=== PATIENT | female | born 1990 | race Caucasian/White ===

== ENCOUNTER 2020-06-30 09:16 | Inpatient (IN) | payer BC ==
[2020-06-30] MEDS ORDERED: Ondansetron 4 MG/2 ML SDV IVPUSH PRN (09:29)
[2020-06-30] MEDS ORDERED: Nalbuphine 10 MG/1 ML Vial IVPUSH PRN (09:29)
[2020-06-30] MEDS ORDERED: Sodium Chloride 0.9% 10 ML Syringe FLUSH PRN (09:29)
[2020-06-30] MEDS ORDERED: Oxytocin/Lactated Ringers 10 UNIT/1,000 ML BAG IV SCH ×2 (09:30→14:00)
[2020-06-30] MEDS: Lactated Ringers 1,000 ML IV SCH ×4 (11:20→14:45)
--- NOTE | 2020-06-30 11:36 | PCM.LDHP ---
L&D History of Present Illness - General Date of Service: 06/30/20 Admit Problem/Dx: Patient Status Order with Admit Dx/Problem 06/30/20 09:29 Patient Status [ADT] Routine Admission Diagnosis/Problem Admission Diagnosis/Problem 06/30/20 11:27 Vera is a 30-year-old 2 para 1-0-0-1 white female who is admitted on the a.m. of 06/30/2020 at 40-1/7 weeks gestational age is within NARESH of 06/11 in active labor with SROM. Source of Information: Patient History Limitations: Reports: No Limitations - History of Present Illness Introduction:: Vera is a 30-year-old 2 para 1-0-0-1 white female who is admitted on the a.m. of 06/30/2020 at 40-1/7 weeks gestational age is within NARESH of in active labor with SROM. She reportedly at 0730 hrs. on 06/30/2020 had a slight leakage of fluid. She called labor and delivery and was told to come in and upon arrival in [place] from [place] had a big gush of fluid and continued moderate amount of fluid loss consistent with SROM. She is avinash approximately every 3 to 5 minutes mild to moderate in nature. Baby has been active. 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 NARESH of 06/29/2020 as determined by a certain last menstrual period which started on 09/23/2019 and is supported by 2 ultrasounds done on 12/13/2019 and 02/11/2020. Patient had menarche at approximately age 12. Cycles q. 28 to 30 days. Last menstrual period 09/23/2019 was a normal cycle and was definite. She is not using any control at the time of conception. She delivered her last baby on 05/26/2018 at 40 and 4 7 weeks gestational age6 pound 4 ounce male via . She had an epidural without delivery. She delivered at [facility] in [place]. Child's name is Hans Bush. She has had no abnormal Pap smears or STIs per her reported history. course. Patient was first seen for this at 11-4/7 weeks gestational age on 12/13/2019. She was seen on a regular basis. Her weight gain has been from 133 pounds to 154 pounds 21 pound increase. Her vital signs of been stable throughout the course and her fundal height growth has been within normal limits at just below that expected for each gestational age e valuation. Patient is group B strep negative. She had an induction scheduled for 07/05/2020. She declined genetic testing. [place] depression screen score on 02/14/2020 was 0/30. Flu vaccine was administered on 05/24/2020. She had a normal 1 hour GTT. She plans to breast-feed. Tdap was given in [place] on 05/24/2020. labs: Blood is B+ with a negative antibody screen. Hemoglobin at first visit was 14.5 g/dL and platelets were 308,000. She is rubella immune. RPR is nonreactive. Urine culture was negative. Hepatitis B surface antigen and HIV assays were both negative as were her chlamydia and gonorrhea tests. Second trimester labs showed a hemoglobin of 12.4 g/dL and a platelet count of 269,000. Her 1 hour GTT was 76. RPR was nonreactive on 03/29/2020. Group B strep screen was negative. Allergies: None Medications: 1. vitamins 1 daily 2. Probiotic caps 1 daily. Past medical history: 1. x1 05/26/2018. Past surgical history: Unremarkable Family history mother is alive and well Father with hypertension. 1 brother alive and well. Maternal grandmother is alive and well. Maternal grandfather secondary to lung and prostate cancer. Paternal grandmother secondary to lung cancerwas a smoker. Paternal grandfather alive with heart disease and coronary artery bypass surgery. There are no anesthesia, bleeding, blood clots or problems noted in the family. Brother with thyroid nodule that was surgically removed. He has hypothyroid on replacement. History: Patient is : Lives in [place], [place]. She does not use any significant alcohol, drugs or tobacco. 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 's name is Eleazar. Review of systems: In general patient has no complaints. The baby has been active. SROM is reported. Clear amniotic fluid resulting. Skin: Negative Lungs: No infectious symptoms or shortness of breath Cardiovascular: No chest pain or exercise intolerance Breasts: No lumps, changes in size, pain, dimpling, discharge or axillary or supraclavicular concerns. GI: Negative : changes. Musculoskeletal: Negative Neurological: Negative Physical exam: In general the patient is well-developed, well-nourished, pleasant female of stated age in no acute distress. On last evaluation clinic her blood pressure is 112/70. Weight was 154.12 pounds with pregravid weight of 133 pounds. Height is 5 feet 1 and body mass index pre was 24.4. heart rate was 146. Skin is warm dry without lesions. HEENT, neck and back within normal limits. Lungs are clear with good breath sounds in all lung mckeon. Cardiovascular exam shows regular and rhythm without murmurs. Breast exam deferred have been done at first visit and found to be normal. Abdomen is gravid with last fundal height in clinic at 35 5 cm in 2019.. Genital per digital exam was 3 cm, 90% effaced, -3 station, anterior, soft, clear amniotic fluid noted. Extremities and neurological exam are grossly within normal limits. 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3 (34.1-44.9) % MCV 88.2 (79.4-94.8) fl MCH 29.3 (25.6-32.2) pg MCHC 33.3 (32.2-35.5) g/dl RDW Std Deviation 43.4 (36.4-46.3) fL Plt Count 284 (182-369) K/mm3 MPV 8.6 L (9.4-12.3) fl Neut % (Auto) 81.6 H (34.0-71.1) % Lymph % (Auto) 12.4 L (19.3-51.7) % Nobles % (Auto) 5.0 (4.7-12.5) % Eos % (Auto) 0.5 L (0.7-5.8) Baso % (Auto) 0.1 (0.1-1.2) % Neut # (Auto) 10.83 H (1.56-6.13) K/mm3 Lymph # (Auto) 1.65 (1.18-3.74) K/mm3 Nobles # (Auto) 0.66 H (0.24-0.36) K/mm3 Eos # (Auto) 0.06 (0.04-0.36) K/mm3 Baso # (Auto) 0.01 (0.01-0.08) K/mm3 Manual Slide Review Normal smear Result Diagrams: 06/30/20 10:10 Problem List Initiated/Reviewed/Updated: Yes Orders Last 24hrs: Active Orders 24 hr Category Date Time Status Patient Status [ADT] Routine ADT 06/30/20 09:29 Active Activity as Tolerated [RC] PFP Care 06/30/20 09:29 Active Communication Order [RC] ASDIRECTED Care 06/30/20 09:29 Active Heart Tones [RC] ASDIRECTED Care 06/30/20 09:29 Active Notify Provider [RC] PFP Care 06/30/20 09:29 Active Notify Provider [RC] PRN Care 06/30/20 09:29 Active Peripheral IV Care [RC] . DIRECTED Care 06/30/20 09:29 Active Pump Management, Intrathecal [RC] ASDIRECTED Care 06/30/20 09:30 Active Urinary Catheter Assessment [RC] ASDIRECTED Care 06/30/20 09:29 Active Vital Signs [RC] PER UNIT ROUTINE Care 06/30/20 09:29 Active Regular Diet [DIET] Diet 06/30/20 Breakfast Active CORONAVIRUS COVID-19 LAMINE [MOLEC] Stat Lab 06/30/20 09:45 Received RAPID PLASMA REAGIN,RPR [CHEM] Routine Lab 06/30/20 10:10 Received Lactated Ringers [Ringers, Lactated] 1,000 ml Med 06/30/20 09:30 Active IV ASDIRECTED Nalbuphine [Nubain] Med 06/30/20 09:29 Active 10 mg IVPUSH Q2H PRN Ondansetron [Zofran] Med 06/30/20 09:29 Active 4 mg IVPUSH Q4H PRN Oxytocin/Lactated Ringers [Pitocin in LR 10 Units/1,000 Med 06/30/20 09:30 Active ML] 10 unit in 1,000 ml IV .CONTINUOUS Sodium Chloride 0.9% [Saline Flush] Med 06/30/20 09:29 Active 10 ml FLUSH ASDIRECTED PRN Electronic Heart Tones Ext w TOCO [WOMSER] Oth 06/30/20 09:29 Ordered Routine Electronic Heart Tones Internal [WOMSER] Per Unit Oth 06/30/20 09:29 Ordered Routine Peripheral IV Insertion Adult [OM.PC] Routine Oth 06/30/20 09:29 Ordered Resuscitation Status Routine Resus Stat 06/30/20 09:29 Ordered Medication Orders Oxytocin/Lactated Ringer's (Pitocin In Lr 10 Units/1,000 Ml) 10 unit in 1,000 mls @ 500 mls/hr IV .CONTINUOUS LISA Lactated Ringer's (Ringers, Lactated) 1,000 mls @ 100 mls/hr IV ASDIRECTED LISA Last Admin: 06/30/20 11:20 Dose: 999 mls/hr Documented by: MICHAEL Nalbuphine HCl (Nubain) 10 mg IVPUSH Q2H PRN PRN Reason: Pain Ondansetron HCl (Zofran) 4 mg IVPUSH Q4H PRN PRN Reason: Nausea/Vomiting Sodium Chloride (Saline Flush) 10 ml FLUSH ASDIRECTED PRN PRN Reason: Keep Vein Open Assessment/Plan Comment:: 1. Vera is a 30-year-old 2 para 1-0-0-1 white female who is admitted on the a.m. of 06/30/2020 at 40-1/7 weeks gestational age is within NARESH of in active labor with SROM resultant clear amniotic fluid. heart tones reassuring 2. Group B strep negative 3. Patient desires epidural in labor 4. She plans to breast-feed 5. Patient declined genetic testing. 6. Flu vaccination given on 05/24/2020, patient is rubella immune. Tdap was given on 04/2020. Plan: 1. Anticipate . 2. Pitocin augmentation as indicated by labor pattern 3. Epidural as needed for patient desire 4. Covid19, RPR and CBC upon admission per protocol 5. Support breast-feeding decision 6. Routine labor care.
[2020-06-30] MEDS ORDERED: ePHEDrine 50 MG/ML SDV IVPUSH PRN (12:06)
[2020-06-30] MEDS ORDERED: diphenhydrAMINE 50 MG/ML SDV IVPUSH PRN (12:06)
[2020-06-30] MEDS ORDERED: fentaNYL 100 MCG/2 ML SDV EPIDUR PRN (12:06)
[2020-06-30] MEDS ORDERED: Bupivacaine/fentaNYL/NS 100 ML Bag EPIDUR PRN (12:06)
[2020-06-30] MEDS ORDERED: Phenylephrine/Normal Saline 100 MCG/ML 10 ML Syringe IVPUSH PRN (13:26)
--- NOTE | 2020-06-30 13:38 | PCM.PREANE ---
Preanesthetic Assessment - Procedure Proposed Procedure: Labor Epidural - Anesthesia/Transfusion/Family Hx Anesthesia History: Prior Anesthesia Without Reaction Family History of Anesthesia Reaction: No Transfusion History: No Prior Transfusion(s) - Review of Systems General: No Symptoms Pulmonary: No Symptoms Cardiovascular: No Symptoms Gastrointestinal: No Symptoms Neurological: No Symptoms Other: Reports: None, Anxiety (Related to epdiural placement) - Physical Assessment Vital Signs: Last Vital Signs Temp 37.7 C 06/30/20 12:18 Pulse 84 06/30/20 09:29 Resp 15 06/30/20 09:29 BP 133/85 06/30/20 09:29 Pulse Ox Height: 1.55 m Weight: 71.94 kg ASA Class: 2 Mental Status: Alert & Oriented x3 Airway Class: Mallampati = 1 Dentition: Reports: Normal Dentition Thyro-Mental Finger Breadths: 3 Mouth Opening Finger Breadths: 3 ROM/Head Extension: Full Lungs: Clear to Auscultation, Normal Respiratory Effort Cardiovascular: Tachycardia (120-130s ) - Lab Values: Laboratory Last Values WBC 13.26 K/mm3 (3.98-10.04) H 06/30/20 10:10 RBC 4.57 M/mm3 (3.98-5.22) 06/30/20 10:10 Hgb 13.4 gm/dl (11.2-15.7) 06/30/20 10:10 Hct 40.3 % (34.1-44.9) 06/30/20 10:10 MCV 88.2 fl (79.4-94.8) 06/30/20 10:10 MCH 29.3 pg (25.6-32.2) 06/30/20 10:10 MCHC 33.3 g/dl (32.2-35.5) 06/30/20 10:10 RDW Std Deviation 43.4 fL (36.4-46.3) 06/30/20 10:10 Plt Count 284 K/mm3 (182-369) 06/30/20 10:10 MPV 8.6 fl (9.4-12.3) L 06/30/20 10:10 Neut % (Auto) 81.6 % (34.0-71.1) H 06/30/20 10:10 Lymph % (Auto) 12.4 % (19.3-51.7) L 06/30/20 10:10 Emanuel % (Auto) 5.0 % (4.7-12.5) 06/30/20 10:10 Eos % (Auto) 0.5 (0.7-5.8) L 06/30/20 10:10 Baso % (Auto) 0.1 % (0.1-1.2) 06/30/20 10:10 Neut # (Auto) 10.83 K/mm3 (1.56-6.13) H 06/30/20 10:10 Lymph # (Auto) 1.65 K/mm3 (1.18-3.74) 06/30/20 10:10 Emanuel # (Auto) 0.66 K/mm3 (0.24-0.36) H 06/30/20 10:10 Eos # (Auto) 0.06 K/mm3 (0.04-0.36) 06/30/20 10:10 Baso # (Auto) 0.01 K/mm3 (0.01-0.08) 06/30/20 10:10 Manual Slide Review Normal smear 06/30/20 10:10 SARS-CoV-2 RNA (LAMINE) Negative (NEGATIVE) 06/30/20 09:45 - Allergies Allergies/Adverse Reactions: Allergies Allergy/AdvReac Type Severity Reaction Status Date / Time No Known Allergies Allergy Verified 05/25/18 20:14 - Acknowledgements Anesthesia Type Planned: Epidural Pt an Appropriate Candidate for the Planned Anesthesia: Yes Alternatives and Risks of Anesthesia Discussed w Pt/Guardian: Yes Pt/Guardian Understands and Agrees with Anesthesia Plan: Yes PreAnesthesia Questionnaire - Past Health History Medical/Surgical History: Denies 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: Neurological History: Reports: Migraines - SUBSTANCE USE Tobacco Use Status *Q: Never Tobacco User Second Hand Smoke Exposure: No Recreational Drug Use History: No - HOME MEDS Home Medications: Home Meds Vit with Ca/FA/Iron [ Plus Iron] 1 each PO DAILY tablet 05/28/18 [Rx] Bacillus Coagulans [Probiotic] 1 tab PO DAILY 06/30/20 [History] - CURRENT (IN HOUSE) MEDS Current Meds: Current Medications Diphenhydramine HCl (Benadryl) 25 mg IVPUSH Q6H PRN PRN Reason: pruritis Ephedrine Sulfate (Ephedrine Sulfate) 5 mg IVPUSH ASDIRECTED PRN PRN Reason: Hypotension Fentanyl (Sublimaze) 100 mcg EPIDUR Q3H PRN PRN Reason: Pain Last Admin: 06/30/20 12:31 Dose: 100 mcg Documented by: Fentanyl/Bupivacaine HCl (Fentanyl/Bupivacaine/Ns 2 Mcg-0.125% 100 Ml) 100 ml EPIDUR ASDIRECTED PRN PRN Reason: Pain Last Admin: 06/30/20 12:30 Dose: 100 ml Documented by: Oxytocin/Lactated Ringer's (Pitocin In Lr 10 Units/1,000 Ml) 10 unit in 1,000 mls @ 500 mls/hr IV .CONTINUOUS LISA Lactated Ringer's (Ringers, Lactated) 1,000 mls @ 100 mls/hr IV ASDIRECTED LISA Last Admin: 06/30/20 13:17 Dose: 999 mls/hr Documented by: Nalbuphine HCl (Nubain) 10 mg IVPUSH Q2H PRN PRN Reason: Pain Ondansetron HCl (Zofran) 4 mg IVPUSH Q4H PRN PRN Reason: Nausea/Vomiting Phenylephrine HCl (Phenylephrine In Ns 100 Mcg/Ml) 0.1 mg IVPUSH ONETIME PRN PRN Reason: Hypotension Sodium Chloride (Saline Flush) 10 ml FLUSH ASDIRECTED PRN PRN Reason: Keep Vein Open
--- NOTE | 2020-06-30 13:43 | PCM.SN.2 ---
- Free Text/Narrative Note: Hypotension status post epidural placement. 1000 ml IV fluid bolus ordered. Phenylephrine 100 mcg administered x 4 doses for hypotension at 1251 67/36, 1257 77/44, 1310 84/41, and 1321 78/36. Vera is able to move both of her legs well, denies SOB, Epidural level at T6 sensory with cold check. BP returned to normal range following infusion of fluid bolus 1330 114/66 and 1340 108/66. Orders placed for hypotension management. ELIER Correa at bedside patient and baby doing well.
[2020-06-30] MEDS ORDERED: Bupivacaine 0.25% 10 ML SDV ONE (16:00)
[2020-06-30] MEDS ORDERED: Phenylephrine/Normal Saline 100 MCG/ML 10 ML Syringe ONE (16:00)
[2020-06-30] MEDS ORDERED: Acetaminophen 325 MG Tab PO PRN ×2 (17:08→18:59)
--- NOTE | 2020-06-30 17:46 | PCM.SN.2 ---
- Free Text/Narrative Note: Delivery note: Vera is a 30-year-old 2 now para 2002 white female who was admitted on the a.m. of 06/30/2020 at 40-1/7 weeks gestational age with and NARESH of 06/29/2020 in active labor with SROM. She reportedly at 0730 hrs. on 06/30/2020 had a slight leakage of fluid. Upon arrival at the hospital she had a large gush of fluid and continued leaking clear amniotic fluid. At the time of admission Vera was avinash every 2 to 5 minutes, mild in nature. Contractions were allowed to build. At approximately 1400 hrs. intrauterine pressure catheter was placed and Pitocin was used for augmentation. She had an epidural in place for analgesia. She progressed rapidly to complete and at 1720 hrs. on 06/30/2020 she delivered a viable, kyle, female named Chayo Gupta. Baby weighed 3000 g (6 pounds 9.8 ounces), had Apgars of 8 and 9 and a length of 20.0 inches. She delivered in a direct occiput anterior position. Her delivery the baby was placed on mom's abdomen and dried with warm blanket and nose mouth were bulb suctioned. Increase to 500 cc an hour to facilitate increase in uterine tone and decrease likelihood of bleeding. The vocal cord was allowed to pulsate x2 to 3 minutes, was clamped x2 and then cut by the baby's Father Eleazar. Cord blood was obtained. Umbilical cord had 3 vessels present within it. The laceration which was small in size was repaired with 3-0 Monocryl suture in a routine fashion using epidural analgesia for perineal laceration repair anesth esia. Already this well. The placenta delivered in a [place] presentation, appeared intact and complete and was discarded per patient desire. Estimated blood loss was 200 cc. Patient plans to breast-feed. Condition: Good.
[2020-06-30] MEDS ORDERED: Witch Hazel Medicated Pads 40/Jar TOP PRN (18:59)
[2020-06-30] MEDS ORDERED: Docusate Sodium 100 MG Cap PO PRN (18:59)
[2020-06-30] MEDS ORDERED: Benzocaine/Menthol 20%-0.5% Spray 56 GM Canister TOP PRN (18:59)
[2020-06-30] MEDS: Ibuprofen 600 MG Tab PO PRN (21:47)
[2020-07-01] MEDS: Ibuprofen 600 MG Tab PO PRN ×4 (03:08→17:56)
[2020-07-01] MEDS ORDERED: Prenatal Multivitamin with Calcium/Folic Acid/Iron Tab PO SCH (09:00)
--- NOTE | 2020-07-01 09:36 | PCM.DCSUM1 ---
Discharge Summary - Hospital Course Free Text/Narrative:: [facility] Provider Simple Note Patient Name: MAGDY DUNLAP Date of : 88 Patient Status: Inpatient Attending Provider: Horace Kimball Date: 06/30/20 17:42 Initialization Date: 06/30/20 17:42 - Free Text/Narrative Note: Delivery note: Magdy is a 30-year-old 2 now para 2003 white female who was admitted on the a.m. of 06/30/2020 at 40-1/7 weeks gestational age with and NARESH of 06/29/2020 in active labor with SROM. She reportedly at 0730 hrs. on 06/30/2020 had a slight leakage of fluid. Upon arrival at the hospital she had a large gush of fluid and continued leaking clear amniotic fluid. At the time of admission Magdy was avinash every 2 to 5 minutes, mild in nature. Contractions were allowed to build. At approximately 1400 hrs. intrauterine pressure catheter was placed and Pitocin was used for augmentation. She had an epidural in place for analgesia. She progressed rapidly to complete and at 1720 hrs. on 06/30/2020 she delivered a viable, kyle, female named Chayo Gupta. Baby weighed 3000 g (6 pounds 9.8 ounces), had Apgars of 8 and 9 and a length of 20.0 inches. She delivered in a direct occiput anterior position. Her delivery the baby was placed on mom's abdomen and dried with warm blanket and nose mouth were bulb suctioned. Increase to 500 cc an hour to facilitate increase in uterine tone and decrease likelihood of bleeding. The vocal cord was allowed to pulsate x2 to 3 minutes, was clamped x2 and then cut by the baby's Father Eleazar. Cord blood was obtained. Umbilical cord had 3 vessels present within it. The laceration which was small in size was repaired with 3-0 Monocryl suture in a routine fashion using epidural analgesia for perineal laceration repair anesthesia. Already this well. The placenta delivered in a Harrison presentation, appeared intact and complete and was discarded per patient desire. Estimated blood loss was 200 cc. Patient plans to breast-feed. Condition: Good. HPI Initial Comments: [facility] Provider Simple Note Patient Name: MAGDY DUNLAP Date of : 88 Patient Status: Inpatient Attending Provider: Horace Kimball Date: 06/30/20 17:42 Initialization Date: 06/30/20 17:42 - Free Text/Narrative Note: Delivery note: Magdy is a 30-year-old 2 now para 2002 white female who was admitted on the a.m. of 06/30/2020 at 40-1/7 weeks gestational age with and NARESH of 06/29/2020 in active labor with SROM. She reportedly at 0730 hrs. on 06/30/2020 had a slight leakage of fluid. Upon arrival at the hospital she had a large gush of fluid and continued leaking clear amniotic fluid. At the time of admission Magdy was avinash every 2 to 5 minutes, mild in nature. Contractions were allowed to build. At approximately 1400 hrs. intrauterine pressure catheter was placed and Pitocin was used for augmentation. She had an epidural in place for analgesia. She progressed rapidly to complete and at 1720 hrs. on 06/30/2020 she delivered a viable, kyle, female named Chayo Gupta. Baby weighed 3000 g (6 pounds 9.8 ounces), had Apgars of 8 and 9 and a length of 20.0 inches. She delivered in a direct occiput anterior position. Her delivery the baby was placed on mom's abdomen and dried with warm blanket and nose mouth were bulb suctioned. Increase to 500 cc an hour to facilitate increase in uterine tone and decrease likelihood of bleeding. The vocal cord was allowed to pulsate x2 to 3 minutes, was clamped x2 and then cut by the baby's Father Eleazar. Cord blood was obtained. Umbilical cord had 3 vessels present within it. The laceration which was small in size was repaired with 3-0 Monocryl suture in a routine fashion using epidural analgesia for perineal laceration repair anesthesia. Already this well. The placenta delivered in a Harrison presentation, appeared intact and complete and was discarded per patient desire. Estimated blood loss was 200 cc. Patient plans to breast-feed. Condition: Good. Brief History: [facility] . [facility] Simple Note. [facility]: [id number]. Date of : 88Patient Status: Inpatient. Attending Provider: Horace Kimball FAccount Number: [id number]. Date: 06/30/20 17:42Initialization Date: 06/30/20 17:42. - Free Text/Narrative. Note: Delivery note: Magdy is a 30-year-old 2 now para 2002 white female who was admitted on the a.m. of 06/30/2020 at 40- 1/7 weeks gestational age with and NARESH of 06/29/2020 in active labor with SROM. She reportedly at 0730 hrs. on 06/30/2020 had a slight leakage of fluid. Upon arrival at the hospital she had a large gush of fluid and continued leaking clear amniotic fluid. At the time of admission Magdy was avinash every 2 to 5 minutes, mild in nature. Contractions were allowed to build. At approximately 1400 hrs. intrauterine pressure catheter was placed and Pitocin was used for augmentation. She had an epidural in place for analgesia. She progressed rapidly to complete and at 1720 hrs. on 06/30/2020 she delivered a viable, kyle, female named Chayo Gupta. Baby weighed 3000 g (6 pounds 9.8 ounces), had Apgars of 8 and 9 and a length of 20.0 inches. She delivered in a direct occiput anterior position. Her delivery the baby was placed on mom's abdomen and dried with warm blanket and nose mouth were bulb suctioned. Increase to 500 cc an hour to facilitate increase in uterine tone and decrease likelihood of bleeding. The vocal cord was allowed to pulsate x2 to 3 minutes, was clamped x2 and then cut by the baby's Father Eleazar. Cord blood was obtained. Umbilical cord had 3 vessels present within it. The laceration which was small in size was repaired with 3-0 Monocryl suture in a routine fashion using epidural analgesia for perineal laceration repair anesthesia. Already this well. The placenta delivered in a Harrison presentation, appeared intact and complete and was discarded per patient desire. Estimated blood loss was 200 cc. Patient plans to breast-feed. Condition: Good. - Discharge Data Discharge Date: 07/01/20 Discharge Disposition: Home, Self-Care 01 Condition: Good - Referral to Home Health Primary Care Physician: Horace Kimball MD - Discharge Diagnosis/Problem(s) (1) 40 weeks gestation of SNOMED Code(s): 13827772 ICD Code: Z3A.40 - 40 WEEKS GESTATION OF Status: Acute Current Visit: No (2) GBS (group B Streptococcus carrier), +RV culture, currently SNOMED Code(s): 8095886462764, 225710388, 4629706269142 ICD Code: O99.820 - STREPTOCOCCUS B CARRIER STATE COMPLICATING Status: Acute Current Visit: No (3) Second degree perineal laceration during delivery, delivered SNOMED Code(s): 4401477, 223742816 ICD Code: O70.1 - SECOND DEGREE PERINEAL LACERATION DURING DELIVERY Status: Acute Current Visit: No (4) Vaginal delivery SNOMED Code(s): 377245788 ICD Code: O80 - ENCOUNTER FOR FULL-TERM UNCOMPLICATED DELIVERY Status: Acute Current Visit: No - Patient Summary/Data Complications: None Consults: None Hospital Course: Uneventful - Patient Instructions Diet: Regular Diet as Tolerated Driving: Do Not Drive (2 weeks) Showering/Bathing: May Shower Notify Provider of: Fever, Increased Pain, Swelling and Redness, Drainage, Nausea and/or Vomiting - Discharge Plan *PRESCRIPTION DRUG MONITORING PROGRAM REVIEWED*: Not Applicable *COPY OF PRESCRIPTION DRUG MONITORING REPORT IN PATIENT GORAN: Not Applicable Home Medications: Home Meds Vit with Ca/FA/Iron [ Plus Iron] 1 each PO DAILY tablet 05/28/18 [Rx] Bacillus Coagulans [Probiotic] 1 tab PO DAILY 06/30/20 [History] Acetaminophen [Tylenol] 650 mg PO Q6H PRN tablet 07/01/20 [Rx] Benzocaine/Menthol [Dermoplast Pain Relief Homer] 1 spray TOP ASDIRECTED PRN canister 07/01/20 [Rx] Docusate Sodium [Colace] 100 mg PO BID PRN cap 07/01/20 [Rx] Ibuprofen [Motrin] 600 mg PO Q6H PRN tablet 07/01/20 [Rx] witch Demetria [Tucks] 1 pad TOP ASDIRECTED PRN pad 07/01/20 [Rx] - Discharge Summary/Plan Comment DC Time >30 min.: No - Patient Data Vitals - Most Recent: Last Vital Signs Temp 98.9 F 07/01/20 03:32 Pulse 88 07/01/20 03:32 Resp 12 07/01/20 03:01 BP 133/87 07/01/20 03:01 Pulse Ox 99 07/01/20 03:32 Weight - Most Recent: 158 lb 9.6 oz I&O - Last 24 hours: Intake & Output 06/30/20 07/01/20 07/01/20 22:59 06:59 14:59 Intake Total 4860 Balance 4860 Lab Results - Last 24 hrs: Laboratory Results - last 24 hr 06/30/20 06/30/20 06/30/20 Range/Units 09:45 10:10 10:10 WBC 13.26 H (3.98-10.04) K/mm3 RBC 4.57 (3.98-5.22) M/mm3 Hgb 13.4 (11.2-15.7) gm/dl Hct 40.3 (34.1-44.9) % MCV 88.2 (79.4-94.8) fl MCH 29.3 (25.6-32.2) pg MCHC 33.3 (32.2-35.5) g/dl RDW Std Deviation 43.4 (36.4-46.3) fL Plt Count 284 (182-369) K/mm3 MPV 8.6 L (9.4-12.3) fl Neut % (Auto) 81.6 H (34.0-71.1) % Lymph % (Auto) 12.4 L (19.3-51.7) % Clinch % (Auto) 5.0 (4.7-12.5) % Eos % (Auto) 0.5 L (0.7-5.8) Baso % (Auto) 0.1 (0.1-1.2) % Neut # (Auto) 10.83 H (1.56-6.13) K/mm3 Lymph # (Auto) 1.65 (1.18-3.74) K/mm3 Clinch # (Auto) 0.66 H (0.24-0.36) K/mm3 Eos # (Auto) 0.06 (0.04-0.36) K/mm3 Baso # (Auto) 0.01 (0.01-0.08) K/mm3 Manual Slide Review Normal smear RPR Non-reactive (NONREACTIVE) SARS-CoV-2 RNA (LAMINE) Negative (NEGATIVE) Med Orders - Current: Current Medications Acetaminophen (Tylenol) 650 mg PO Q4H PRN PRN Reason: mild pain or fever Benzocaine/Menthol (Dermoplast Pain Relief Homer) 0 gm TOP ASDIRECTED PRN PRN Reason: Perineal Comfort Measure Docusate Sodium (Colace) 100 mg PO BID PRN PRN Reason: Constipation Last Admin: 07/01/20 03:07 Dose: 100 mg Documented by: Ibuprofen (Motrin) 600 mg PO Q4H PRN PRN Reason: Mild pain or fever Last Admin: 07/01/20 03:08 Dose: 600 mg Documented by: Prenat Multivit/[place]/Iron/Folic Ac ( Plus Iron) 1 each PO DAILY LISA Belen Isbell (Tucks) 1 pad TOP ASDIRECTED PRN PRN Reason: Perineal Comfort Measure Discontinued Medications Acetaminophen (Tylenol) 650 mg PO Q4H PRN PRN Reason: Pain/Fever Diphenhydramine HCl (Benadryl) 25 mg IVPUSH Q6H PRN PRN Reason: pruritis Ephedrine Sulfate (Ephedrine Sulfate) 5 mg IVPUSH ASDIRECTED PRN PRN Reason: Hypotension Fentanyl (Sublimaze) 100 mcg EPIDUR Q3H PRN PRN Reason: Pain Last Admin: 06/30/20 12:31 Dose: 100 mcg Documented by: Fentanyl/Bupivacaine HCl (Fentanyl/Bupivacaine/Ns 2 Mcg-0.125% 100 Ml) 100 ml EPIDUR ASDIRECTED PRN PRN Reason: Pain Last Admin: 06/30/20 12:30 Dose: 100 ml Documented by: Oxytocin/Lactated Ringer's (Pitocin In Lr 10 Units/1,000 Ml) 10 unit in 1,000 mls @ 500 mls/hr IV .CONTINUOUS LISA Lactated Ringer's (Ringers, Lactated) 1,000 mls @ 100 mls/hr IV ASDIRECTED LISA Last Admin: 06/30/20 14:45 Dose: 999 mls/hr Documented by: Oxytocin/Lactated Ringer's (Pitocin In Lr 10 Units/1,000 Ml) 10 unit in 1,000 mls @ 12 mls/hr IV TITRATE LISA; Protocol Last Titration: 06/30/20 16:20 Dose: 14 munits/min, 84 mls/hr Documented by: Nalbuphine HCl (Nubain) 10 mg IVPUSH Q2H PRN PRN Reason: Pain Ondansetron HCl (Zofran) 4 mg IVPUSH Q4H PRN PRN Reason: Nausea/Vomiting Phenylephrine HCl (Phenylephrine In Ns 100 Mcg/Ml) 0.1 mg IVPUSH ONETIME PRN PRN Reason: Hypotension Sodium Chloride (Saline Flush) 10 ml FLUSH ASDIRECTED PRN PRN Reason: Keep Vein Open
--- NOTE | 2020-07-02 04:41 | PCM48HPAN ---
Post Anesthesia Note - EVALUATION WITHIN 48HRS OF ANESTHETIC Vital Signs in Normal Range: Yes Patient Participated in Evaluation: Yes Respiratory Function Stable: Yes Airway Patent: Yes Cardiovascular Function Stable: Yes Hydration Status Stable: Yes Pain Control Satisfactory: Yes Nausea and Vomiting Control Satisfactory: Yes Mental Status Recovered: Yes Vital Signs: Last Vital Signs Temp 36.4 C 07/01/20 14:11 Pulse 96 07/01/20 14:11 Resp 14 07/01/20 14:11 BP 126/75 07/01/20 14:11 Pulse Ox 99 07/01/20 03:32
== END 2020-07-01 17:45 | disposition home or self-care (01) | DRG 560 ==
LOC: JD.OBCHECK 09:16 → JD.OB 09:17 → JD.OBCHECK 09:29 → JD.OB 09:29 → OBSVTOIN 17:20 → JD.OB 17:21
PROVIDERS: ADMIT Obstetrics & Gynecology; ATTEND Obstetrics & Gynecology
PROC: 10E0XZZ Delivery of Products of Conception, External Approach (ICD-10-PCS; principal; 2020-06-30)
PROC: 10H07YZ Insertion of Other Device into Products of Conception, Via Natural or Artificial Opening (ICD-10-PCS; 2020-06-30)
PROC: 0KQM0ZZ Repair Perineum Muscle, Open Approach (ICD-10-PCS; 2020-06-30)
DX: O99.824 Streptococcus B carrier state complicating childbirth (principal); Z3A.40 40 weeks gestation of pregnancy; Z37.0 Single live birth; O70.1 Second degree perineal laceration during delivery; Z20.828 Contact with and (suspected) exposure to other viral communicable diseases; O26.53 Maternal hypotension syndrome, third trimester
CPT/HCPCS: 36415; 51702; 59025; 59409; 85025; 86592; A9270-GY; J2370; J2590; J3010; J3490; J7120; U0002